=== PATIENT | female | born 1980 | race Caucasian/White ===

== ENCOUNTER 2017-05-18 17:34 | Emergency (ER) | payer BC ==
--- NOTE | 2017-05-18 18:51 | ERNOTE ---
Lower Extremity HPI - Narrative Date of Service: 05/18/17 - General Lower Extremities Pain: 5th toe: left Time Seen by Provider: 05/18/17 18:37 Source: patient, RN notes reviewed Exam Limitations: no limitations - Immun/Allergies/Home Medications Immunizations: IMMUNIZATION HX Immunizations Up to Date Yes History of Influenza Vaccine No Hx Pneumococcal Vaccination No Allergies/Adverse Reactions: Allergies Allergy/AdvReac Type Severity Reaction Status Date / Time No Known Allergies Allergy Unverified 05/18/17 17:44 Home Medications: HOME MEDICATIONS ALPRAZolam [Xanax] 0.5 mg PO PRN PRN 05/18/17 [Last Taken Unknown] ARIPiprazole [Abilify] 5 mg PO DAILY 05/18/17 [Last Taken Unknown] - History of Present Illness Narrative: 37 year old female presents to the ED for left 5th toe pain. She struck her toe on her vacuum housecleaner floor earlier today. Date (Duration): 05/18/17 Occurred: this morning Location of Incident: home Method of Injury: Reports: direct blow Modifying Factors - (Improves): Reports: immobilization Modifying Factors - (Worsens): Reports: movement Other Injuries: Reports: none Subsequent Symptoms: Denies: sensory loss, numbness, motor loss Prior Treament: Denies: recently seen, similar symptoms before Review of Systems - Review of Systems Constitutional: Present: no symptoms reported EYE: Present: no symptoms reported ENT: Present: no symptoms reported Respiratory: Present: no symptoms reported Cardiology: Present: no symptoms reported Gastrointestinal/Abdominal: Present: no symptoms reported Genitourinary: Present: no symptoms reported Musculoskeletal: Present: joint pain, joint swelling Skin: Present: change in color. Absent: lesions, lumps Neurological: Absent: weakness, numbness, tingling Endocrine: Present: no symptoms reported Hematologic/Lymphatic: Present: no symptoms reported Psych: Present: no symptoms reported - Patient's Past Medical History Patient History - Medical: Anxiety, Bipolar Patient History - Cardiac/Respiratory: No pertinent hx Patient History - Cancer: No Hx of Cancer Patient History - Surgical Procedures: Other, Hernia Repair Patient History - Other: None LMP (females 10-50): 3 weeks - Social History Living Situations: spouse Abuse History: No History of abuse Psych History: Hx of Anxiety, Hx of Bipolar Disorder Smoking Status: Current every day smoker Have you smoked in the past 12 months: Yes Do you dip or chew tobacco: No Alcohol Use: rarely Drug Use: none - Immunizations Immunizations Up to Date: Yes Hx Pneumococcal Vaccination: No History of Influenza Vaccine: No Physical Exam - Physical Exam General Appearance: Present: wd/wn, alert, no apparent distress Respiratory: Present: no respiratory distress, no accessory muscle use Cardiovascular/Chest: Present: normal peripheral pulses Peripheral Pulses: N=norm/S=strong/W=weak/B=bound/A=absent: Dorsalis-pedis (L): Strong Extremity Exam: Present: normal except - - Left 5th toe with ecchymosis and mild edema, tender to palpation, pain with ROM Neurological Exam: Present: alert, oriented, normal mood/affect, no motor/ sensory deficits Skin Exam: Present: normal color, warm/dry ED Progress - Vital Signs Patient's Vital Signs:: I have reviewed the patient's vital signs. Vital Signs: Vital Signs 05/18/17 05/18/17 17:40 18:15 Temperature 36.8 C Pulse Rate 107 H 98 Respiratory 16 16 Rate Blood Pressure 115/70 116/63 O2 Sat by Pulse 100 100 Oximetry - X-Ray X-Ray #1 X-Ray: toe - Left 5th Interpretation: Interp. by me X-ray Comments: Questionable nondisplaced fracture of distal phalanx - Progress/Reassessment Chief Complaint: Foot Injury/Pain Progress:: Unchanged Plan - Plan Plan: Discussed possible fracture with patient, however treatment of fracture vs. contusion is the same, offered to colleen tape toe, patient does not feel that she would be able to tolerate at present. Departure Clinical Impression: Toe injury Qualifiers: Encounter type: initial encounter Laterality: left Qualified Code(s): S99.922A - Unspecified injury of left foot, initial encounter - Departure Disposition: Home self-care Condition: Good Instructions: Toe Fracture, [id number] Additional Instructions: Ice and elevate Tylenol and/or ibuprofen for pain Can try taping 4th and 5th toes together for support when able to tolerate Referrals: Shadi Moeller MD [Primary Care Provider] -
[2017-05-18 18:57] VITALS: BP 118/67
== END 2017-05-18 19:00 | disposition home or self-care (01) ==
LOC: ER 17:34
DX: S99.922A Unspecified injury of left foot, initial encounter (principal); X58.XXXA Exposure to other specified factors, initial encounter; Y93.E3 Activity, vacuuming; Y92.009 Unspecified place in unspecified non-institutional (private) residence as the place of occurrence of the external cause; F31.9 Bipolar disorder, unspecified; F41.9 Anxiety disorder, unspecified; F17.200 Nicotine dependence, unspecified, uncomplicated